=== PATIENT | female | born 1980 | race Caucasian/White ===

== ENCOUNTER 2019-01-17 22:05 | Emergency (ER) | payer OTHER ==
[~2019-01-17] VITALS: Ht 167.6 cm; Wt 84.4 kg
[2019-01-18] MEDS ORDERED: PEPCID AC20 MG PO (02:45)
[2019-01-18] MEDS ORDERED: DICLOFENAC SOD100 MG PO (02:45)
== END 2019-01-18 03:06 | disposition home or self-care (01) ==
LOC: ER 22:05
DX: N83.292 Other ovarian cyst, left side (principal); R10.32 Left lower quadrant pain